=== PATIENT | male | born 1995 | race Caucasian/White ===

== ENCOUNTER 2016-09-21 14:18 | Emergency (ER) | payer OTHER, BC ==
[2016-09-21 14:24] VITALS: PULSE 110; RESP 16; TEMP 97
[2016-09-21] MEDS ORDERED: SODIUM CHLORIDE 0.9% 1000ML 1,000 ML IV ONE (14:49)
[2016-09-21 15:10] LABS: BASOPHILS % (AUTO) 1 % (0-3); EOSINOPHILS % (AUTO) 2 % (0-9); HEMATOCRIT 51 % (39-53); MEAN CORPUSCULAR HGB CONC 35.5 gm/dl (32.0-36.0); NEUTROPHILS % (AUTO) 64.5 % (37-80)
[2016-09-21 15:16] LABS: MEAN CORPUSCULAR VOLUME 80 fL (80-100)
[2016-09-21 15:21] LABS: CALCIUM 9.5 mg/dl (8.5-10.1); POTASSIUM 3.3 mMol/L (3.5-5.1)
[2016-09-21] MEDS ORDERED: POTASSIUM CHLORIDE 10 MEQ TER PO ONE (15:22)
[2016-09-21] MEDS ORDERED: POTASSIUM CHLORIDE 10 MEQ TER ONE (15:30)
[2016-09-21 15:53] VITALS: BP 156/98; O2SAT 96
== END 2016-09-21 16:30 | disposition home or self-care (01) | DRG 923 ==
LOC: ED 14:18
DX: Z04.1 Encounter for examination and observation following transport accident (principal); D58.2 Other hemoglobinopathies; E87.6 Hypokalemia; V53.5XXA Driver of pick-up truck or van injured in collision with car, pick-up truck or van in traffic accident, initial encounter
CPT/HCPCS: 71010; 80048; 85025; 96365; 99282; 99284